=== PATIENT | female | born 1960 | race Two or more races ===

== ENCOUNTER 2023-08-06 14:40 | Emergency (ER) | payer OTHER ==
[~2023-08-06] VITALS: Ht 162.6 cm; Wt 94.4 kg
[2023-08-06 14:47] VITALS: TEMP 98.7
[2023-08-06] MEDS ORDERED: ketorolac trometh. 30mg/ml inj. IM ONE (16:10)
[2023-08-06] MEDS ORDERED: HYDR-3973 PO (16:44)
[2023-08-06] MEDS ORDERED: CLIN300C54 PO (16:44)
[2023-08-06 16:58] VITALS: BP 145/89; PULSE 73; RESP 18; O2SAT 98
[2023-08-06] MEDS: HYDROcodone/acetaminophen 5mg/325mg tablet PO ONE (17:08)
[2023-08-06] MEDS: ketorolac tromethamine 15mg/ml inj. IM ONE (17:15)
[2023-08-06] MEDS: CefTRIAXone 1000mg IM Kit (w/lidocaine diluent) IM ONE (17:19)
== END 2023-08-06 17:28 | disposition home or self-care (01) ==
LOC: ER 14:41
DX: L02.412 Cutaneous abscess of left axilla (principal); Z88.5 Allergy status to narcotic agent
CPT/HCPCS: 96372; 99284; J0696; J1885